=== PATIENT | female | born 1935 | race Caucasian/White ===

== ENCOUNTER → 2016-09-28 | Outpatient (CLI) | payer OTHER ==
--- NOTE | 2016-09-28 12:52 | DIAGNOSTIC IMAGING REPORT ---
PROCEDURE: XR HIP BILATERAL INDICATION: R HIP PAIN TECHNIQUE: AP view of the pelvis and hips with lateral views of the bilateral hips. COMPARISON: None. FINDINGS: RIGHT HIP: Osseous structures and joint spaces are normal. LEFT HIP: Osseous structures and joint spaces are normal. PELVIS: Osseous pelvis is normal. IMPRESSION: 1. Negative pelvis and bilateral hips.
== END ==
LOC: XR SRH 12:02
DX: M25.551 Pain in right hip (principal)